=== PATIENT | male | born 1950 | race Caucasian/White ===

== ENCOUNTER 2016-11-05 11:36 | Observation (INO) | payer OTHER, MEDICAID ==
[2016-11-05] MEDS ORDERED: HALDOL INJ IVP ONE (14:48)
[2016-11-05] MEDS ORDERED: HALDOL INJ IVP PRN (14:50)
[2016-11-05 15:03] LABS: BASOPHILS # (AUTO) 0.1 X10^3/uL (0.0-0.1); BASOPHILS % (AUTO) 1.4 % (0.2-1.0); EOSINOPHILS # (AUTO) 0.5 x10^3/uL (0.0-0.2); EOSINOPHILS % (AUTO) 6.1 % (0.9-2.9); HEMATOCRIT 31.8 % (42.0-54.0); HEMOGLOBIN 10.5 g/dL (13.5-18.0); LYMPHOCYTES # (AUTO) 1.5 X10^3/uL (1.3-2.9); LYMPHOCYTES % (AUTO) 19.6 % (21.0-51.0); MEAN PLATELET VOLUME 8.3 fL (7.4-11.0); MONOCYTES # (AUTO) 0.6 x10^3/uL (0.3-0.8); MONOCYTES % (AUTO) 8.2 % (0.0-13.0); NEUTROPHILS # (AUTO) 4.9 x10^3/uL (2.2-4.8); NEUTROPHILS % (AUTO) 64.7 % (42.0-75.0); PLATELET COUNT 228 X10^3/uL (150.0-450.0); RED BLOOD COUNT 3.74 X10^6/uL (4.7-6.0); RED CELL DISTRIBUTION WIDTH 14.9 % (11.6-16.5); WHITE BLOOD COUNT 7.5 X10^3/uL (3.6-10.0)
[2016-11-05] MEDS: NS 1000 ML 1,000 ML IV SCH (15:22)
[2016-11-05 15:32] LABS: ALANINE AMINOTRANSFERASE 21 Units/L (12-78); ALBUMIN 3.3 g/dL (3.4-5.0); ALKALINE PHOSPHATASE 52 Units/L (46-116); ASPARTATE AMINO TRANSFERASE 13 Units/L (15-37); BLOOD UREA NITROGEN 19 mg/dL (7-18); CARBON DIOXIDE 28.8 mmol/L (21-32); CHLORIDE 104 mmol/L (98-107); COR CA(FOR HYPOALB) 9.6 mg/dL (8.5-10.1); CREATININE 1.45 mg/dL (0.70-1.30); GLUCOSE 106 mg/dL (65-99); SODIUM 139 mmol/L (136-145); eGFR BLACK RACES > 60 (>60); eGFR NON BLACK RACES 51 (>60)
[2016-11-05] MEDS ORDERED: PERCOCET TAB 5/325 MG PO PRN ×2 (16:22→20:14)
[2016-11-05] MEDS ORDERED: GEODON INJ IM PRN ×2 (16:23→20:14)
[2016-11-05 17:50] VITALS: BMI 31.6
[2016-11-05] MEDS: SNACK - Diabetic Appropriate PO SCH (20:05)
[2016-11-05] MEDS ORDERED: PATIENT'S HOME MEDICATION PO SCH (21:00)
[2016-11-05] MEDS ORDERED: APIXABAN PO SCH (21:00)
[2016-11-05] MEDS ORDERED: MOBIC TAB 15 MG PO SCH (21:00)
[2016-11-05] MEDS ORDERED: HYDROCHLOROTHIAZIDE 25 MG TAB PO SCH (21:00)
[2016-11-05] MEDS ORDERED: ZANTAC PO SCH (21:00)
[2016-11-05] MEDS ORDERED: ELIQUIS PO SCH (21:00)
[2016-11-05] MEDS ORDERED: PATIENT'S HOME MEDICATION (Memantine Hcl [Namenda] 1 TAB) PO SCH (21:00)
[2016-11-05] MEDS ORDERED: LEXAPRO PO SCH (21:00)
[2016-11-05] MEDS ORDERED: DESYREL PO SCH (21:00)
[2016-11-05] MEDS ORDERED: METFORMIN HCL PO SCH (21:00)
[2016-11-05] MEDS ORDERED: ARICEPT TAB 5 MG PO SCH (21:00)
[2016-11-05] MEDS ORDERED: PATIENT'S HOME MEDICATION (Escitalopram Oxalate [Lexapro 20 Mg] 1 TAB) PO SCH (21:00)
[2016-11-05] MEDS ORDERED: NAMENDA TAB 10 MG PO SCH (21:00)
[2016-11-05] MEDS ORDERED: FLOMAX PO SCH (21:00)
[2016-11-05] MEDS ORDERED: CARDIZEM CD 180 MG PO SCH (21:00)
[2016-11-05] MEDS ORDERED: NEURONTIN CAP 300 MG PO SCH (21:00)
[2016-11-05] MEDS ORDERED: LEXAPRO ONE (21:12)
[2016-11-05] MEDS ORDERED: GLUCOPHAGE ONE (21:12)
[2016-11-05 21:17] LABS: BILIRUBIN,URINE NEGATIVE (NEGATIVE); BLOOD/HEMOGLOBIN,URINE NEGATIVE (NEGATIVE); GLUCOSE, URINE NEGATIVE (NEGATIVE); KETONES,URINE NEGATIVE (NEGATIVE); LEUKOCYTE ESTERASE ,URINE NEGATIVE (NEGATIVE); NITRITES,URINE NEGATIVE (NEGATIVE); PROTEIN,URINE NEGATIVE (NEGATIVE); UROBILINOGEN,URINE NORMAL (NORMAL)
[2016-11-05 21:29] LABS: APPEARANCE,URINE CLEAR (CLEAR); COLOR,URINE YELLOW (YELLOW)
[2016-11-05 21:30] LABS: BACTERIA,URINE NEGATIVE /HPF (NEGATIVE); RBC,URINE 0-3 /HPF (NEGATIVE); SQUAMOUS EPITHELIAL CELL,UR RARE /HPF (NEGATIVE)
[2016-11-05] MEDS: RisperDAL TAB 1 MG PO SCH (22:10)
[2016-11-05] MEDS: ELIQUIS PO SCH (22:10)
[2016-11-05] MEDS: DESYREL PO SCH (22:10)
[2016-11-05] MEDS: ZANTAC PO SCH (22:10)
[2016-11-05] MEDS: FLOMAX PO SCH (22:10)
[2016-11-05] MEDS: GLUCOPHAGE PO SCH (22:11)
[2016-11-05] MEDS: LEXAPRO PO SCH (22:11)
[2016-11-05] MEDS: NEURONTIN CAP 300 MG PO SCH (22:11)
[2016-11-05] MEDS: AMARYL TAB 4 MG PO SCH ×2 (22:20→22:58)
[2016-11-05] MEDS: NAMENDA TAB 10 MG PO SCH (22:20)
[2016-11-05] MEDS: PSYLLIUM PO SCH (22:36)
[2016-11-05] MEDS: PATIENT'S HOME MEDICATION PO SCH (22:37)
[2016-11-06 06:54] LABS: BASOPHILS # (AUTO) 0.1 X10^3/uL (0.0-0.1); BASOPHILS % (AUTO) 1.5 % (0.2-1.0); EOSINOPHILS # (AUTO) 0.4 x10^3/uL (0.0-0.2); EOSINOPHILS % (AUTO) 5.6 % (0.9-2.9); HEMATOCRIT 37.3 % (42.0-54.0); HEMOGLOBIN 12.3 g/dL (13.5-18.0); LYMPHOCYTES # (AUTO) 1.5 X10^3/uL (1.3-2.9); LYMPHOCYTES % (AUTO) 20.7 % (21.0-51.0); MEAN CORPUSCULAR HGB CONC 32.8 g/dL (33.0-35.0); MEAN CORPUSCULAR VOLUME 85.2 fL (80.0-100.0); MEAN PLATELET VOLUME 9.5 fL (7.4-11.0); MONOCYTES # (AUTO) 0.7 x10^3/uL (0.3-0.8); MONOCYTES % (AUTO) 9.5 % (0.0-13.0); NEUTROPHILS # (AUTO) 4.6 x10^3/uL (2.2-4.8); NEUTROPHILS % (AUTO) 62.7 % (42.0-75.0); PLATELET COUNT 233 X10^3/uL (150.0-450.0); RED BLOOD COUNT 4.38 X10^6/uL (4.7-6.0); WHITE BLOOD COUNT 7.3 X10^3/uL (3.6-10.0)
[2016-11-06] MEDS ORDERED: GLUCOPHAGE PO SCH (07:00)
[2016-11-06 07:17] LABS: ALANINE AMINOTRANSFERASE 20 Units/L (12-78); ALBUMIN 3.7 g/dL (3.4-5.0); ALKALINE PHOSPHATASE 60 Units/L (46-116); ASPARTATE AMINO TRANSFERASE 16 Units/L (15-37); BLOOD UREA NITROGEN 18 mg/dL (7-18); CALCIUM 9.8 mg/dL (8.5-10.1); CARBON DIOXIDE 24.9 mmol/L (21-32); CHLORIDE 105 mmol/L (98-107); CREATININE 1.16 mg/dL (0.70-1.30); GLUCOSE 72 mg/dL (65-99); SODIUM 141 mmol/L (136-145); eGFR BLACK RACES > 60 (>60); eGFR NON BLACK RACES > 60 (>60)
[2016-11-06] MEDS ORDERED: GLUCOPHAGE ONE ×2 (08:35→20:04)
[2016-11-06] MEDS ORDERED: PROTONIX TAB 40 MG PO SCH (09:00)
[2016-11-06] MEDS: ARICEPT TAB 5 MG PO SCH (09:27)
[2016-11-06] MEDS: GLUCOPHAGE PO SCH ×2 (09:27→21:00)
[2016-11-06] MEDS: ELIQUIS PO SCH ×2 (09:27→20:53)
[2016-11-06] MEDS: MOBIC TAB 15 MG PO SCH (09:27)
[2016-11-06] MEDS: CARDIZEM CD 180 MG PO SCH (09:28)
[2016-11-06] MEDS: PROTONIX TAB 40 MG PO SCH (09:29)
[2016-11-06] MEDS: AMARYL TAB 4 MG PO SCH (09:29)
[2016-11-06] MEDS: HYDROCHLOROTHIAZIDE 25 MG TAB PO SCH (09:29)
[2016-11-06] MEDS: NAMENDA TAB 10 MG PO SCH ×2 (09:30→20:52)
[2016-11-06] MEDS: NS 1000 ML 1,000 ML IV SCH (17:58)
--- NOTE | 2016-11-06 18:24 | DR.H&P ---
H&P - History & Physical for Day of: H&P Date: 11/05/16 - Chief Complaint Chief Complaint: agressive behavoir, combative - Allergies Allergies/Adverse Reactions: Allergies Allergy/AdvReac Type Severity Reaction Status Date / Time Penicillin G Allergy Verified 06/29/13 13:21 Penicillins Allergy Verified 10/07/13 10:46 pencillin Allergy Mild Uncoded 11/21/11 19:32 - History of Present Illness History of Present Illness: 66 wm RESIDENT OF [facility] [place], HX OF BIPOLAR AND DEMENTIA. PT HAS RECENTLY VIOLENT BEHAVIOR TO STAFF, PLAN TO ADMIT FOR CLEARANCE FOR BEHAVIOR HEALTH PLACEMENT - Past Medical History Past Medical History: Anxiety, COPD, GERD, Arthritis, Hypertension, Diabetes Additional Medical History: ETOH ABUSE - Past Surgical History Surgical History: Unknown Additional Surgical History: COLONOSCOPY - Family History Family Medical History: Diabetes Mellitus, Cancer, Hypertension - Social History Does patient currently use any type of tobacco product: Yes Have you used tobacco products in the last 12 months: Yes Type of Tobacco Use: Cigarettes How many years tobacco product used: 40 Alcohol Use: Heavy Drug Use: Prescription Drugs - Medications Home Medications: Apixaban [Eliquis] 1 tab PO BID 11/05/16 [History Confirmed 11/05/16] Diltiazem HCl Ext Rel [CARDIZEM CD 180 mg (24 hr) *] 1 cap PO DAILY 11/05/16 [ History Confirmed 11/05/16] Donepezil Hydrochloride [ARICEPT TAB 5 MG *] 1 tab PO DAILY 11/05/16 [History Confirmed 11/05/16] Escitalopram Oxalate [Lexapro 20 mg] 1 tab PO HS 11/05/16 [History Confirmed ] Gabapentin [Gabapentin] 1 tab PO HS 11/05/16 [History Confirmed 11/05/16] Glimepiride [Glimepiride] 1 tab PO DAILY 11/05/16 [History Confirmed 11/05/16] Hydrochlorothiazide [HYDROCHLOROTHIAZIDE 25 MG TAB *] 1 tab PO DAILY 11/05/16 [ History Confirmed 11/05/16] Meloxicam [MOBIC 15 MG *] 1 tab PO DAILY 11/05/16 [History Confirmed 11/05/16] Memantine HCl [Namenda] 1 tab PO BID 11/05/16 [History Confirmed 11/05/16] Metformin HCl [Glucophage] 1 tab PO BID 11/05/16 [History Confirmed 11/05/16] Oxycodone/Acet 5 mg/325 mg [PERCOCET 5/325 MG *] 2 tab PO BID PRN 11/05/16 [ History Confirmed 11/05/16] Pantoprazole Sodium 40 mg [PROTONIX 40 MG *] 1 tab PO DAILY 11/05/16 [History Confirmed 11/05/16] Psyllium [Metamucil] 1 cap PO HS 11/05/16 [History Confirmed 11/05/16] Ranitidine HCl [Ranitidine [address]] 1 tab PO HS 11/05/16 [History Confirmed 11/05/16] Tamsulosin HCl 1 cap PO HS 11/05/16 [History Confirmed 11/05/16] Trazodone HCl [TRAZODONE 50 MG (DESYREL) *] 25 mg PO HS 11/05/16 [History Confirmed 11/05/16] Ziprasidone Mesylate Inj [GEODON INJ 20 MG VIAL *] 20 mg INJ Q6H PRN 11/05/16 [ History Confirmed 11/05/16] - Review of Systems Constitutional: Weakness Eyes: No Symptoms Reported ENT: No Symptoms Reported Respiratory: No Symptoms Reported Cardiovascular: No Symptoms Reported Gastrointestinal: No Symptoms Reported Genitourinary: No Symptoms Reported Musculoskeletal: Back Pain Skin: No Symptoms Reported Neurological: Confusion (MILD CONFUSION) - Physical Exam Vital Signs: Temperature 98.6 F Pulse Rate [Left Brachial] 108 Respiratory Rate 20 Blood Pressure [Left Arm] 136/64 Blood Pressure [Right Arm] 91/42 Blood Pressure 105/46 O2 Sat by Pulse Oximetry 95 Oriented: Person. negative: Time, Place Eyes: Normal Nose: Normal Throat: Normal Respiratory: RLL Exp. Wheeze, LLL Exp. Wheeze Cardiovascular: Normal : Normal Auscultation: Bowel Sounds: Normal Tenderness: Normal Skin: Normal Musculoskeletal: Back:Lumbar Psychiatric: Anxiety Affect: Anxious Speech Pattern: Clear - Assessment/Plan (1) Altered mental status Qualifiers: Altered mental status type: A Coma depth: C Coma timing: C Status: Acute Plan: ADMIT, ADMISSION LABS. [facility] CMP UA, CXR. CONSULT CASE MANAGEMENT FOR PLACEMENT BEHAVIOR HEALTH. RESUME HOME MEDS. BP CONTROL (2) Dementia with aggressive behavior Status: Acute (3) BPH (benign prostatic hypertrophy) Status: Chronic (4) COPD (chronic obstructive pulmonary disease) Qualifiers: COPD type: C Chronic bronchitis type: C Emphysema type: E Status: Chronic (5) Diabetes mellitus, type 2 Qualifiers: Diabetes mellitus complication status: D Diabetes mellitus complication detail: D Diabetic retinopathy severity: D Proliferative retinopathy type: P Diabetes mellitus macular edema: D Diabetes mellitus intermediate designer insulin use : D Laterality: L Chronic kidney disease stage: C Status: Chronic (6) GERD (gastroesophageal reflux disease) Qualifiers: Esophagitis presence: E Status: Chronic (7) Hypertension Qualifiers: Hypertension type: H Status: Chronic
--- NOTE | 2016-11-06 18:29 | PCM.PROG ---
Progress Note - Progress Note for Day of Date: 11/06/16 - Subjective Subjective: CALM AND COOPERATIVE WITH STAFF THIS AM, PT DENIES ANY COMPLAINTS. PT AWAITING PLACEMENT IN BEHAVIOR HEALTH UNIT, DISCUSSED WITH PT. REPEAT AM LABS, BP AND BLOOD SUGAR CONTROL - Past Medical Family Social History Past Med/Fam/Surg Hx: No changes since H&P Allergies: Allergies Penicillin G Allergy (Verified 06/29/13 13:21) Penicillins Allergy (Verified 10/07/13 10:46) pencillin Allergy (Mild, Uncoded 11/21/11 19:32) - Vital Signs and I&O's Vital Signs: Temperature 98.6 F Pulse Rate [Left Brachial] 108 Respiratory Rate 20 Blood Pressure [Left Arm] 136/64 Blood Pressure [Right Arm] 91/42 Blood Pressure 105/46 O2 Sat by Pulse Oximetry 95 Intake and Output: Intake & Output 11/04/16 11/05/16 11/06/16 11/07/16 11:59 11:59 11:59 11:59 Intake Total 414 520 Output Total 1000 700 Balance -586 -180 - Physical Exam Oriented: Person. negative: Time, Place Eyes: Normal Nose: Normal Throat: Normal Respiratory: Diminished Cardiovascular: Normal : Normal Auscultation: Bowel Sounds: Normal Tenderness: Normal Skin: Normal Musculoskeletal: Back:Lumbar Psychiatric: Anxiety Affect: Anxious Speech Pattern: Clear - Laboratory and Diagnostics Result Diagrams: 11/06/16 04:30 11/06/16 04:30 Labs: 11/05/16 21:08 Urine,Clean Catch Urine Culture - Preliminary Laboratory WBC 7.3 X10^3/uL (3.6-10.0) 11/06/16 04:30 RBC 4.38 X10^6/uL (4.7-6.0) L 11/06/16 04:30 Hgb 12.3 g/dL (13.5-18.0) L 11/06/16 04:30 Hct 37.3 % (42.0-54.0) L 11/06/16 04:30 MCV 85.2 fL (80.0-100.0) 11/06/16 04:30 MCH 28.0 pg (27.0-34.0) 11/06/16 04:30 MCHC 32.8 g/dL (33.0-35.0) L 11/06/16 04:30 RDW 15.0 % (11.6-16.5) 11/06/16 04:30 Plt Count 233 X10^3/uL (150.0-450.0) 11/06/16 04:30 MPV 9.5 fL (7.4-11.0) 11/06/16 04:30 Neut % 62.7 % (42.0-75.0) 11/06/16 04:30 Lymph % 20.7 % (21.0-51.0) L 11/06/16 04:30 [place] % 9.5 % (0.0-13.0) 11/06/16 04:30 Eos % 5.6 % (0.9-2.9) H 11/06/16 04:30 Baso % 1.5 % (0.2-1.0) H 11/06/16 04:30 Neut # 4.6 x10^3/uL (2.2-4.8) 11/06/16 04:30 Lymph # 1.5 X10^3/uL (1.3-2.9) 11/06/16 04:30 [place] # 0.7 x10^3/uL (0.3-0.8) 11/06/16 04:30 Eos # 0.4 x10^3/uL (0.0-0.2) H 11/06/16 04:30 Baso # 0.1 X10^3/uL (0.0-0.1) 11/06/16 04:30 Absolute Nucleated RBC 0.0 /100WBC 11/06/16 04:30 Sodium 141 mmol/L (136-145) 11/06/16 04:30 Corrected Sodium TNP 11/06/16 04:30 Potassium 4.5 mmol/L (3.5-5.1) 11/06/16 04:30 Chloride 105 mmol/L (98-107) 11/06/16 04:30 Carbon Dioxide 24.9 mmol/L (21-32) 11/06/16 04:30 BUN 18 mg/dL (7-18) 11/06/16 04:30 Creatinine 1.16 mg/dL (0.70-1.30) 11/06/16 04:30 Est GFR (MDRD) Af Amer > 60 (>60) 11/06/16 04:30 Est GFR (MDRD) Non-Af > 60 (>60) 11/06/16 04:30 Glucose 72 mg/dL (65-99) 11/06/16 04:30 Calcium 9.8 mg/dL (8.5-10.1) 11/06/16 04:30 Corrected Calcium TNP 11/06/16 04:30 Total Bilirubin 0.40 mg/dL (0.2-1.0) 11/06/16 04:30 AST 16 Units/L (15-37) 11/06/16 04:30 ALT 20 Units/L (12-78) 11/06/16 04:30 Alkaline Phosphatase 60 Units/L (46-116) 11/06/16 04:30 Total Protein 9.0 g/dL (6.4-8.2) H 11/06/16 04:30 Albumin 3.7 g/dL (3.4-5.0) 11/06/16 04:30 Globulin 5.3 g/dL (2.5-4.5) H 11/06/16 04:30 Albumin/Globulin Ratio 0.7 Ratio (1.1-2.1) L 11/06/16 04:30 Specimen Type Clean catch urine 11/05/16 21:08 Urine Color Yellow (YELLOW) 11/05/16 21:08 Urine Appearance Clear (CLEAR) 11/05/16 21:08 Urine pH 7.0 (5.0 - 8.0) 11/05/16 21:08 Ur Specific [place] 1.010 (1.000-1.030) 11/05/16 21:08 Urine Protein Negative (NEGATIVE) 11/05/16 21:08 Urine Glucose (UA) Negative (NEGATIVE) 11/05/16 21:08 Urine Ketones Negative (NEGATIVE) 11/05/16 21:08 Urine Occult Blood Negative (NEGATIVE) 11/05/16 21:08 Urine Nitrite Negative (NEGATIVE) 11/05/16 21:08 Urine Bilirubin Negative (NEGATIVE) 11/05/16 21:08 Urine Urobilinogen Normal (NORMAL) 11/05/16 21:08 Ur Leukocyte Esterase Negative (NEGATIVE) 11/05/16 21:08 Urine RBC 0-3 /HPF (NEGATIVE) 11/05/16 21:08 Urine WBC 0-3 /HPF (NEGATIVE) 11/05/16 21:08 Ur Squamous Epith Cells Rare /HPF (NEGATIVE) 11/05/16 21:08 Urine Bacteria Negative /HPF (NEGATIVE) 11/05/16 21:08 Ur Culture Indicated? No/not indicated 11/05/16 21:08 - Plan (1) Altered mental status Status: Acute Qualifiers: Altered mental status type: A Coma depth: C Coma timing: C Plan: [facility] CMP UA, CXR. CONSULT CASE MANAGEMENT FOR PLACEMENT BEHAVIOR HEALTH. RESUME HOME MEDS. BP CONTROL (2) Dementia with aggressive behavior Status: Acute (3) BPH (benign prostatic hypertrophy) Status: Chronic (4) COPD (chronic obstructive pulmonary disease) Status: Chronic Qualifiers: COPD type: C Chronic bronchitis type: C Emphysema type: E (5) Diabetes mellitus, type 2 Status: Chronic Qualifiers: Diabetes mellitus complication status: D Diabetes mellitus complication detail: D Diabetic retinopathy severity: D Proliferative retinopathy type: P Diabetes mellitus macular edema: D Diabetes mellitus fpc insulin use : D Laterality: L Chronic kidney disease stage: C (6) GERD (gastroesophageal reflux disease) Status: Chronic Qualifiers: Esophagitis presence: E (7) Hypertension Status: Chronic Qualifiers: Hypertension type: H
[2016-11-06] MEDS ORDERED: LEXAPRO ONE (20:05)
[2016-11-06] MEDS: SNACK - Diabetic Appropriate PO SCH (20:20)
[2016-11-06] MEDS: RisperDAL TAB 1 MG PO SCH (20:51)
[2016-11-06] MEDS: ZANTAC PO SCH (20:51)
[2016-11-06] MEDS: FLOMAX PO SCH (20:51)
[2016-11-06] MEDS: NEURONTIN CAP 300 MG PO SCH (20:52)
[2016-11-06] MEDS: DESYREL PO SCH (20:53)
[2016-11-06] MEDS: LEXAPRO PO SCH (20:53)
[2016-11-06] MEDS: PSYLLIUM PO SCH (20:55)
[2016-11-06] MEDS: PATIENT'S HOME MEDICATION PO SCH (20:55)
[2016-11-07 06:21] LABS: BASOPHILS # (AUTO) 0.1 X10^3/uL (0.0-0.1); BASOPHILS % (AUTO) 1.4 % (0.2-1.0); EOSINOPHILS # (AUTO) 0.3 x10^3/uL (0.0-0.2); HEMATOCRIT 34.1 % (42.0-54.0); HEMOGLOBIN 11.4 g/dL (13.5-18.0); LYMPHOCYTES # (AUTO) 1.5 X10^3/uL (1.3-2.9); LYMPHOCYTES % (AUTO) 21.6 % (21.0-51.0); MEAN CORPUSCULAR HGB CONC 33.5 g/dL (33.0-35.0); MEAN CORPUSCULAR VOLUME 83.6 fL (80.0-100.0); MEAN PLATELET VOLUME 9.1 fL (7.4-11.0); MONOCYTES # (AUTO) 0.6 x10^3/uL (0.3-0.8); MONOCYTES % (AUTO) 9.6 % (0.0-13.0); NEUTROPHILS # (AUTO) 4.2 x10^3/uL (2.2-4.8); NEUTROPHILS % (AUTO) 62.4 % (42.0-75.0); PLATELET COUNT 217 X10^3/uL (150.0-450.0); RED BLOOD COUNT 4.08 X10^6/uL (4.7-6.0); RED CELL DISTRIBUTION WIDTH 14.9 % (11.6-16.5); WHITE BLOOD COUNT 6.8 X10^3/uL (3.6-10.0)
[2016-11-07 06:52] LABS: ALANINE AMINOTRANSFERASE 18 Units/L (12-78); ALBUMIN 3.1 g/dL (3.4-5.0); ALKALINE PHOSPHATASE 53 Units/L (46-116); ASPARTATE AMINO TRANSFERASE 12 Units/L (15-37); BLOOD UREA NITROGEN 21 mg/dL (7-18); CALCIUM 9.1 mg/dL (8.5-10.1); CARBON DIOXIDE 23.4 mmol/L (21-32); CHLORIDE 104 mmol/L (98-107); COR CA(FOR HYPOALB) 9.8 mg/dL (8.5-10.1); CREATININE 1.07 mg/dL (0.70-1.30); GLUCOSE 97 mg/dL (65-99); SODIUM 142 mmol/L (136-145); TOTAL PROTEIN 7.9 g/dL (6.4-8.2); eGFR BLACK RACES > 60 (>60); eGFR NON BLACK RACES > 60 (>60)
[2016-11-07] MEDS ORDERED: GLUCOPHAGE ONE (08:26)
[2016-11-07] MEDS: MOBIC TAB 15 MG PO SCH (09:16)
[2016-11-07] MEDS: AMARYL TAB 4 MG PO SCH (09:16)
[2016-11-07] MEDS: CARDIZEM CD 180 MG PO SCH (09:17)
[2016-11-07] MEDS: GLUCOPHAGE PO SCH (09:17)
[2016-11-07] MEDS: PROTONIX TAB 40 MG PO SCH (09:17)
[2016-11-07] MEDS: NAMENDA TAB 10 MG PO SCH (09:17)
[2016-11-07] MEDS: HYDROCHLOROTHIAZIDE 25 MG TAB PO SCH (09:17)
[2016-11-07] MEDS: ELIQUIS PO SCH (09:18)
[2016-11-07] MEDS: ARICEPT TAB 5 MG PO SCH (09:28)
[2016-11-07 16:04] VITALS: BP 160/70
--- NOTE | 2016-11-07 18:30 | PCM.DCPLAN ---
Discharge Summary - Admission Date Date of Admission: 11/05/16 - Discharge Date Discharge Date: 11/14/16 - Admission Diagnoses (1) Altered mental status Status: Acute (2) Dementia with aggressive behavior Status: Acute (3) BPH (benign prostatic hypertrophy) Status: Chronic (4) COPD (chronic obstructive pulmonary disease) Status: Chronic (5) Diabetes mellitus, type 2 Status: Chronic (6) GERD (gastroesophageal reflux disease) Status: Chronic (7) Hypertension Status: Chronic - Discharge Diagnoses Discharge Diagnosis: SAME ADMISSION - Discharge Medications Discharge Medications: Apixaban [Eliquis] 1 tab PO BID 11/05/16 [History] Diltiazem HCl Ext Rel [CARDIZEM CD 180 mg (24 hr) *] 1 cap PO DAILY 11/05/16 [ History] Donepezil Hydrochloride [ARICEPT TAB 5 MG *] 1 tab PO DAILY 11/05/16 [History] Escitalopram Oxalate [Lexapro 20 mg] 1 tab PO HS 11/05/16 [History] Gabapentin 1 tab PO HS 11/05/16 [History] Glimepiride 1 tab PO DAILY 11/05/16 [History] Hydrochlorothiazide [HYDROCHLOROTHIAZIDE 25 MG TAB *] 1 tab PO DAILY 11/05/16 [ History] Meloxicam [MOBIC 15 MG *] 1 tab PO DAILY 11/05/16 [History] Memantine HCl [Namenda] 1 tab PO BID 11/05/16 [History] Metformin HCl [Glucophage] 1 tab PO BID 11/05/16 [History] Oxycodone/Acet 5 mg/325 mg [PERCOCET 5/325 MG *] 2 tab PO BID PRN 11/05/16 [ History] Pantoprazole Sodium 40 mg [PROTONIX 40 MG *] 1 tab PO DAILY 11/05/16 [History] Psyllium [Metamucil] 1 cap PO HS 11/05/16 [History] Ranitidine HCl [Ranitidine [address]] 1 tab PO HS 11/05/16 [History] Tamsulosin HCl 1 cap PO HS 11/05/16 [History] Trazodone HCl [TRAZODONE 50 MG (DESYREL) *] 25 mg PO HS 11/05/16 [History] Ziprasidone Mesylate Inj [GEODON INJ 20 MG VIAL *] 20 mg INJ Q6H PRN 11/05/16 [ History] - Hospital Course Vital Signs: Temperature 98.4 F Pulse Rate [Right Brachial] 104 Pulse Rate [Left Brachial] 80 Respiratory Rate 20 Blood Pressure [Left Arm] 140/65 Blood Pressure [Right Arm] 160/70 Blood Pressure 105/46 O2 Sat by Pulse Oximetry 93 Latest Lab Results: Laboratory Last Values WBC 6.8 X10^3/uL (3.6-10.0) 11/07/16 04:20 RBC 4.08 X10^6/uL (4.7-6.0) L 11/07/16 04:20 Hgb 11.4 g/dL (13.5-18.0) L 11/07/16 04:20 Hct 34.1 % (42.0-54.0) L 11/07/16 04:20 MCV 83.6 fL (80.0-100.0) 11/07/16 04:20 MCH 28.0 pg (27.0-34.0) 11/07/16 04:20 MCHC 33.5 g/dL (33.0-35.0) 11/07/16 04:20 RDW 14.9 % (11.6-16.5) 11/07/16 04:20 Plt Count 217 X10^3/uL (150.0-450.0) 11/07/16 04:20 MPV 9.1 fL (7.4-11.0) 11/07/16 04:20 Neut % 62.4 % (42.0-75.0) 11/07/16 04:20 Lymph % 21.6 % (21.0-51.0) 11/07/16 04:20 [place] % 9.6 % (0.0-13.0) 11/07/16 04:20 Eos % 5.0 % (0.9-2.9) H 11/07/16 04:20 Baso % 1.4 % (0.2-1.0) H 11/07/16 04:20 Neut # 4.2 x10^3/uL (2.2-4.8) 11/07/16 04:20 Lymph # 1.5 X10^3/uL (1.3-2.9) 11/07/16 04:20 [place] # 0.6 x10^3/uL (0.3-0.8) 11/07/16 04:20 Eos # 0.3 x10^3/uL (0.0-0.2) H 11/07/16 04:20 Baso # 0.1 X10^3/uL (0.0-0.1) 11/07/16 04:20 Absolute Nucleated RBC 0.0 /100WBC 11/07/16 04:20 Sodium 142 mmol/L (136-145) 11/07/16 04:20 Corrected Sodium TNP 11/07/16 04:20 Potassium 4.3 mmol/L (3.5-5.1) 11/07/16 04:20 Chloride 104 mmol/L (98-107) 11/07/16 04:20 Carbon Dioxide 23.4 mmol/L (21-32) 11/07/16 04:20 BUN 21 mg/dL (7-18) H 11/07/16 04:20 Creatinine 1.07 mg/dL (0.70-1.30) 11/07/16 04:20 Est GFR (MDRD) Af Amer > 60 (>60) 11/07/16 04:20 Est GFR (MDRD) Non-Af > 60 (>60) 11/07/16 04:20 Glucose 97 mg/dL (65-99) 11/07/16 04:20 Calcium 9.1 mg/dL (8.5-10.1) 11/07/16 04:20 Corrected Calcium 9.8 mg/dL (8.5-10.1) 11/07/16 04:20 Total Bilirubin 0.30 mg/dL (0.2-1.0) 11/07/16 04:20 AST 12 Units/L (15-37) L 11/07/16 04:20 ALT 18 Units/L (12-78) 11/07/16 04:20 Alkaline Phosphatase 53 Units/L (46-116) 11/07/16 04:20 Total Protein 7.9 g/dL (6.4-8.2) 11/07/16 04:20 Albumin 3.1 g/dL (3.4-5.0) L 11/07/16 04:20 Globulin 4.8 g/dL (2.5-4.5) H 11/07/16 04:20 Albumin/Globulin Ratio 0.6 Ratio (1.1-2.1) L 11/07/16 04:20 Specimen Type Clean catch urine 11/05/16 21:08 Urine Color Yellow (YELLOW) 11/05/16 21:08 Urine Appearance Clear (CLEAR) 11/05/16 21:08 Urine pH 7.0 (5.0 - 8.0) 11/05/16 21:08 Ur Specific [employer] 1.010 (1.000-1.030) 11/05/16 21:08 Urine Protein Negative (NEGATIVE) 11/05/16 21:08 Urine Glucose (UA) Negative (NEGATIVE) 11/05/16 21:08 Urine Ketones Negative (NEGATIVE) 11/05/16 21:08 Urine Occult Blood Negative (NEGATIVE) 11/05/16 21:08 Urine Nitrite Negative (NEGATIVE) 11/05/16 21:08 Urine Bilirubin Negative (NEGATIVE) 11/05/16 21:08 Urine Urobilinogen Normal (NORMAL) 11/05/16 21:08 Ur Leukocyte Esterase Negative (NEGATIVE) 11/05/16 21:08 Urine RBC 0-3 /HPF (NEGATIVE) 11/05/16 21:08 Urine WBC 0-3 /HPF (NEGATIVE) 11/05/16 21:08 Ur Squamous Epith Cells Rare /HPF (NEGATIVE) 11/05/16 21:08 Urine Bacteria Negative /HPF (NEGATIVE) 11/05/16 21:08 Ur Culture Indicated? No/not indicated 11/05/16 21:08 Hospital Course: 66WM ADMITTED FROM [facility] FOR PLACEMENT AT [facility] DUE TO AGGRESSIVE BEHAVIOR TO STAFF AND INCREASE AGITATION. PT HAS PMH OF ETOH ABUSE AND BIPOLAR DISORDER. ADMISSION LABS CBC CMP UA CXR ORDERED. PT CONDITION STABLE WHILE INPATIENT. PT HAD GOOD APPETITE AND COOPERATIVE WITH STAFF. PT ACCEPTED AT [facility]. WILL DC TODAY TO RESUME HOME MEDS AND SEEK MENTAL HEALTH THERAPY. - Discharge Plan Disposition: 03 XFER SNF Condition: Stable - Follow ups/Referrals Follow ups/Referrals: NICK GARRISON [Primary Care Provider] - - Instructions
== END 2016-11-07 15:45 ==
LOC: MED/SURG 11:36
PROVIDERS: ADMIT Internal Medicine; ATTEND Internal Medicine
DX: R41.82 Altered mental status, unspecified (principal); F41.8 Other specified anxiety disorders; J44.9 Chronic obstructive pulmonary disease, unspecified; K21.9 Gastro-esophageal reflux disease without esophagitis; M13.89 Other specified arthritis, multiple sites; I10 Essential (primary) hypertension; E11.65 Type 2 diabetes mellitus with hyperglycemia; N40.0 Benign prostatic hyperplasia without lower urinary tract symptoms; F03.91 Unspecified dementia, unspecified severity, with behavioral disturbance; R26.89 Other abnormalities of gait and mobility; D64.89 Other specified anemias; R94.4 Abnormal results of kidney function studies
CPT/HCPCS: 36415; 80053; 81001; 85025; 87086; 97535; A4222; G8978; G8979; G8980; G8987; G8988; G0378; J1630